=== PATIENT | female | born 1970 | race Caucasian/White ===

== ENCOUNTER 2018-09-01 14:43 | Emergency (ER) | payer OTHER ==
[~2018-09-01] VITALS: Ht 175.3 cm; Wt 61.2 kg
[~2018-09-01 14:43] MED LIST: BACTRIM; BEYAZ 28 TABLE1 EACH PO; BIOTIN1 M1 PO; FISH OIL 1,001000 M2 PO; GABAPENTIN100 MG; HYDROCODONE; KLONIPIN; KLONOPIN1 MG PO; MIRALAX255 GM PO; NEXIUM 40 MG CA40 M1; NORCO 5-325 TA1 EACH PO; OXYCONTIN15 MG PO; PERCOCET 5-3251 EACH PO; SKELAXIN 800 M800 M1 PO; TRAMADOL 50 MG50 MG PO; ZYRTEC10 MG PO
[2018-09-01 15:47] VITALS: BP 149/72
== END 2018-09-01 15:50 | disposition home or self-care (01) ==
LOC: M.ERS 14:43
DX: J32.9 Chronic sinusitis, unspecified (principal); F41.9 Anxiety disorder, unspecified; K21.9 Gastro-esophageal reflux disease without esophagitis; Z88.0 Allergy status to penicillin; Z88.8 Allergy status to other drugs, medicaments and biological substances

== ENCOUNTER 2018-11-10 19:25 | Emergency (ER) | payer OTHER ==
[~2018-11-10] VITALS: Ht 152.4 cm; Wt 65.8 kg
[2018-11-10] MEDS ORDERED: CLARITIN10 MG PO (21:10)
[2018-11-10] MEDS ORDERED: KEFLEX500 M1 PO (21:10)
[2018-11-10] MEDS ORDERED: AFRIN15 ML NS (21:10)
[2018-11-10 21:49] VITALS: BP 145/82
== END 2018-11-10 21:49 | disposition home or self-care (01) ==
LOC: M.ERS 19:25
DX: J01.00 Acute maxillary sinusitis, unspecified (principal); F41.9 Anxiety disorder, unspecified; K21.9 Gastro-esophageal reflux disease without esophagitis; Z88.0 Allergy status to penicillin; Z88.8 Allergy status to other drugs, medicaments and biological substances